=== PATIENT | female | born 1975 | race Hispanic/Latino ===

== ENCOUNTER 2021-10-29 08:47 | Day surgery (SDC) | payer MEDICARE, MEDICAID | END 2021-10-29 10:42 | disposition home or self-care (01) | LOC: CSHSDC/OP 08:47 | PROVIDERS: ATTEND Family Medicine | DX: Z23 Encounter for immunization (principal); U07.1 COVID-19 | CPT/HCPCS: 96365; M0243; Q0244; J3490 ==

== ENCOUNTER 2023-05-21 08:36 | Outpatient (CLI) | payer MEDICARE, MEDICAID ==
[2023-05-21] MEDS ORDERED: Magnevist 469MG/ML 20 ML VIAL ONE (10:49)
== END 2023-05-21 08:37 | disposition home or self-care (01) ==
LOC: CSHMRI 08:36
PROVIDERS: ATTEND Internal Medicine Endocrinology, Diabetes & Metabolism
DX: E23.6 Other disorders of pituitary gland (principal)
CPT/HCPCS: 70553; A9579